=== PATIENT | male | born 1965 | race Caucasian/White ===

== ENCOUNTER 2016-04-08 18:24 | Emergency (ER) | payer OTHER ==
--- NOTE | 2016-04-08 18:28 | UCPHY ---
H & P Patient Type: Established HPI/ROS: HPI CHIEF COMPLAINT: Left ear pain, left ear drainage HISTORY OF PRESENT ILLNESS: This patient very pleasant 51-year-old male, denies any significant medical or surgical history, is nondiabetic, presents to the urgent care with drainage x3 days out of his left ear. Denies fever, denies headache, denies severe pain. Does tell me his hearing is a little bit worse in the left ear. he describes drainage is clear, nonbloody, no pain in his left ear. Does tell me his external ear canal itches. Past Medical History: No significant medical history Past Surgical History: Denies significant surgical history Social History: Denies use of drugs alcohol tobacco products Family History: noncontributory ROS REVIEW OF SYSTEMS: A comprehensive 10 point review of systems is otherwise negative aside from elements mentioned in the history of present illness. Exam Constitutional triage nursing summary reviewed, vital signs reviewed, awake/ alert. Eyes normal conjunctivae and sclera, EOMI, PERRLA. HENT left ear canal erythematous, there is yellow drainage in his ear canal that appears thick consistency of cottage cheese, right TM normal, no mastoid tenderness, no pain with range of motion of the external ear pinna, , atraumatic , moist mucus membranes, no epistaxis, neck supple/ no meningismus, no raccoon eyes. Respiratory clear to auscultation bilaterally, normal breath sounds, no respiratory distress, no wheezing. Cardiovascular rate normal, regular rhythm, no murmur, no edema, distal pulses normal. Gastrointestinal soft, non-tender, no rebound, no guarding, normal bowel sounds, no distension, no pulsatile mass. Genitourinary no CVA tenderness. Musculoskeletal no midline vertebral tenderness, full range of motion, no calf swelling, no tenderness of extremities, no meningismus, good pulses, neurovascularly intact. Skin pink, warm, & dry, no rash, skin atraumatic. Neurologic awake, alert and oriented x 3, AAOx3, moves all 4 extremities equally, motor intact, sensory intact, CN II-XII intact, normal cerebellar, normal vision, normal speech. Psychiatric normal mood/affect. Heme/Lymph/Immune no lymphadenopathy. Differential Diagnosis: Includes but is not limited to otitis externa, otitis media, perforated TM, malignancy, mastoiditis Medical Decision Making: This patient is an obvious otitis externa TM visualize does still appear intact, there is no significant bulge erythema. The in inner ear canal does appear red swollen and has yellow substance consistent of cottage cheese. This appears to be in acute otitis media. No mastoid tenderness. He will need to follow up with ENT and his primary care doctor. I will place him on antibiotic ear drops. Source: Patient - Medical/Surgical History Hx Asthma: No Hx Chronic Respiratory Disease: No Hx Diabetes: No Hx Cardiac Disease: No Hx Renal Disease: No Hx Cirrhosis: No Hx Alcoholism: No Hx HIV/AIDS: No Hx Splenectomy or Spleen Trauma: No Other PMH: ortho surgeries - Family History Significant Family History: No pertinent family hx Allergies/Adverse Reactions: No Known Allergies Allergy (Verified 04/08/16 18:36) Home Medications: Medication Instructions Recorded Indomethacin 03/29/13 Ciprofloxacin HCl/Dexameth 7.5 ml OT BID #2 drops.susp 04/08/16 [Ciprodex Otic Suspension] Departure - Departure Disposition: Home, Routine, Self-Care Clinical Impression: Otitis externa Qualifiers: Otitis externa type: other infective Laterality: left Chronicity: acute Qualified Code(s): H60.392 - Other infective otitis externa, left ear Condition: Good Instructions: Otitis Externa (ED) Additional Instructions: 1. please take antibiotic as prescribed 2.Return to the urgent care or emergency room if you have any worsening symptoms questions or concerns includes worsening pain, fever 3.Please follow up with primary care doctor next 48 hours 4.Please follow up with ENT. Referrals: Jerry Nazario MD [Primary Care Provider] - As per Instructions Anastasia Albrecht MD [Medical Doctor] - As per Instructions Prescriptions: Ciprofloxacin HCl/Dexameth [Ciprodex Otic Suspension] 7.5 ml OT BID #2 drops.susp - PQRS PQRS Measurement: n/a
[2016-04-08 18:44] VITALS: BP 116/78; PULSE 74; RESP 14; TEMP 98.4; O2SAT 92
== END 2016-04-08 18:55 | disposition home or self-care (01) ==
LOC: CED 18:24
DX: H60.392 Other infective otitis externa, left ear (principal)
CPT/HCPCS: 99214-PO; G0463-PO

== ENCOUNTER 2016-09-20 11:50 | Emergency (ER) | payer OTHER ==
[2016-09-20 11:58] VITALS: RESP 16
[2016-09-20] MEDS ORDERED: HYDROGEN PEROXIDE 236 ML BOTTLE TP ONE (12:42)
--- NOTE | 2016-09-20 12:55 | EDPHY ---
H & P Stated Complaint: cut r arm on glass Source: Patient Exam Limitations: No limitations - Personal History Current Tetanus/Diphtheria Vaccine: Yes Tetanus Vaccine Date: 2016 - Medical/Surgical History Hx Asthma: No Hx Chronic Respiratory Disease: No Hx Diabetes: No Hx Cardiac Disease: No Hx Renal Disease: No Hx Cirrhosis: No Hx Alcoholism: No Hx HIV/AIDS: No Hx Splenectomy or Spleen Trauma: No Other PMH: ortho surgeries gout - Social History Smoking Status: Never smoked HPI/ROS: CHIEF COMPLAINT: Laceration HISTORY OF PRESENT ILLNESS: Patient was taking out trash when he tripped and fell, landing on a wine glass. He sustained lacerations to the right forearm and right brachium due to the glass. Minimally painful. No numbness or tingling distally. No difficulty moving the fingers, wrist, elbow. Bleeding was maintained with simple pressure. No pulsatile blood flow described. Currently no pain at rest. Tetanus is updated less than 1 year ago. No other associated complaints or modifying factors. TIME OF INJURY: Less than 1 hour prior to arrival TETANUS STATUS: Updated less than 1 year ago REVIEW OF SYSTEMS: Ten systems reviewed and are negative unless otherwise noted in the HPI EXAMINATION General Appearance: Alert, no distress Head: normocephalic, atraumatic Cardiovascular: Pulses normal throughout. Symmetric radial pulses 2+. Brisk cap refill Neurological: A&O, sensory symmetric, strength symmetric Skin: Warm and dry, no rash. Two lacerations noted. 1. Right forearm 2 cm without any evidence of foreign body. No pulsatile blood flow. 2. Right brachium, 2.5 cm. No foreign body or pulsatile blood flow. Neurovascular intact distally. Extremities: Minimally tender over the lacerations. There is no bony tenderness of the right upper extremity. Range of motion of the fingers, wrist , elbow and shoulder fully intact without deficit. DIFFERENTIAL DIAGNOSES: Including but not limited to simple laceration, complex laceration, laceration with foreign body, laceration or tendon involvement, laceration with vascular injury MDM: 12:35 p.m. Laceration to the right forearm and right brachium. These are small and do not appear to have any vascular or underlying soft tissue complication. There is possibility of foreign body of the forearm, thus I have ordered an x-ray. The wounds have been anesthetized. 1:45 p.m. Lacerations of the right brachium and forearm that have been closed. There is no foreign body on x-ray. They have been vigorously irrigated. No involvement of the fascia or muscle belly. He remains neurovascular intact postprocedure. Wound care discussed. They are leaving town next week and will return here the following Thursday for suture removal. ER precautions for signs of infection as discussed should that develop. PROCEDURE: Laceration repair, 1. Consent: Verbal Location: Right brachium Length of repair: 2.5 cm Complexity: Simple Layer involvement: Single Anesthesia: Local, 1% lidocaine with epinephrine, 5 mL Irrigation: Extensive Debridement: None Procedure description: Following good anesthesia, the wound was copiously irrigated. Wound bed was explored and there is no foreign body noted. Wound borders were approximated well with good hemostasis. Tolerated well without complication. Suture/Staple material: 4-0 Prolene, 4 simple interrupted sutures Wound care: Routine as discussed Suture/Staple removal: 7-10 Days PROCEDURE: Laceration repair, 2. Consent: Verbal Location: Right forearm Length of repair: 2 cm Complexity: Simple Layer involvement: Single Anesthesia: Local, 1% lidocaine with epinephrine, 5 mL Irrigation: Extensive Debridement: None Procedure description: Following good anesthesia, the wound was copiously irrigated. Wound bed was explored and there is no foreign body noted. Wound borders were approximated well with good hemostasis. Tolerated well without complication. Suture/Staple material: 4-0 Prolene, 3 simple interrupted sutures Wound care: Routine as discussed Suture/Staple removal: 7-10 Days SUTURE STAPLE REMOVAL: 7-10 days ED Precautions: Worsening pain. Erythema, edema, cyanosis, pallor, paresthesia or anesthesia. SUPERVISION: This patient was independently evaluated without direct examination by the attending physician. Case was discussed with attending physician. (Waldemar Yanez ) Constitutional: Initial Vital Signs Temperature (C) 37.2 C 09/20/16 11:56 Heart Rate 78 09/20/16 11:56 Respiratory Rate 16 09/20/16 11:56 Blood Pressure 144/90 H 09/20/16 11:56 O2 Sat (%) 93 09/20/16 11:56 O2 Delivery Mode Room Air Allergies/Adverse Reactions: No Known Allergies Allergy (Verified 09/20/16 11:55) Home Medications: Medication Instructions Recorded NK [No Known Home Meds] 09/20/16 Medical Decision Making - Diagnostics Imaging Results: Imaging Impressions Forearm X-Ray 09/20/16 12:46 Impression: 1. Gas is present in the soft tissues lateral proximal forearm without radiopaque foreign body. ED Course/Re-evaluation: I did not see this patient while he was in the emergency department. However his care was discussed with the PA while the patient was in the department. I agree with treatment plan and management ([address]val[address]) Departure - Departure Disposition: Home, Routine, Self-Care Clinical Impression: Laceration of arm, right, multiple sites Qualifiers: Encounter type: initial encounter Qualified Code(s): S41.111A - Laceration without foreign body of right upper arm, initial encounter Condition: Good Instructions: Care For Your Stitches (ED), Laceration (ED) Additional Instructions: 1. Daily wound care as discussed 2. Return in 7-10 days for suture removal 3. Return for signs of infection as discussed if needed Referrals: Jerry Nazario MD [Primary Care Provider] - As per Instructions
[2016-09-20 13:59] VITALS: BP 138/87; PULSE 67; TEMP 97.5; O2SAT 92
== END 2016-09-20 13:58 | disposition home or self-care (01) ==
PROC: 0HQBXZZ Repair Right Upper Arm Skin, External Approach (ICD-10-PCS; principal; 2016-09-20)
DX: S41.111A Laceration without foreign body of right upper arm, initial encounter (principal); W25.XXXA Contact with sharp glass, initial encounter; Y92.89 Other specified places as the place of occurrence of the external cause; Y99.0 Civilian activity done for income or pay; Y93.89 Activity, other specified